=== PATIENT | female | born 1980 | race Caucasian/White ===

== ENCOUNTER → 2023-03-14 | Outpatient (CLI) | payer OTHER ==
[2023-03-21 15:20] LABS: HPV GENOTYPE 16 Not Detected; HPV GENOTYPE 18 Detected; HPV HIGH RISK Detected; HPV SOURCE Vaginal
== END ==
LOC: LAB 13:34 → LAB SHORT 13:34
PROVIDERS: Family Medicine
DX: Z87.42 Personal history of other diseases of the female genital tract (principal)
CPT/HCPCS: 87624; G0123

== ENCOUNTER → 2023-04-09 | Outpatient (CLI) | payer OTHER | LOC: LAB SHORT 04-04 13:50 → LAB 08:41 | DX: N89.8 Other specified noninflammatory disorders of vagina (principal) | CPT/HCPCS: 88305 ==

== ENCOUNTER → 2024-06-17 | Outpatient (CLI) | payer SELFPAY ==
[2024-06-29 10:38] LABS: HPV GENOTYPE 16 BY TMA Not Detected; HPV GENOTYPE 18/45 BY TMA Detected; HPV HIGH RISK BY TMA Detected; HPV SOURCE Vaginal; HPVG SOURCE Vaginal
== END ==
LOC: LAB 15:44 → LAB SHORT 15:44
PROVIDERS: Family Medicine
DX: Z01.419 Encounter for gynecological examination (general) (routine) without abnormal findings (principal)
CPT/HCPCS: 87624; 87625; G0123